=== PATIENT | female | born 1960 | race Caucasian/White ===

== ENCOUNTER 2021-05-07 23:11 | Emergency (ER) | payer SELFPAY ==
[~2021-05-07] VITALS: Ht 167.6 cm; Wt 86.2 kg
[2021-05-07 23:15] VITALS: BP 152/83
[2021-05-07] MEDS ORDERED: CIPROFLOXACIN HCL 500 MG TABLET ONE (23:58)
[2021-05-08] MEDS ORDERED: CIPROFLOXACIN HCL 250 MG TABLET PO ONE
== END 2021-05-08 | disposition home or self-care (01) ==
LOC: ER 23:11
DX: Z20.811 Contact with and (suspected) exposure to meningococcus (principal)